=== PATIENT | female | born 1995 | race Asian ===

== ENCOUNTER 2020-02-05 00:16 | Emergency (ER) | payer OTHER ==
[~2020-02-05] VITALS: Ht 149.9 cm; Wt 46.7 kg
[2020-02-05 00:19] VITALS: BP 124/69
== END 2020-02-05 01:16 | disposition home or self-care (01) ==
LOC: ER 00:24
DX: Z20.828 Contact with and (suspected) exposure to other viral communicable diseases (principal)
CPT/HCPCS: 87426; 99283; C9803